=== PATIENT | female | born 1945 | race Caucasian/White ===

== ENCOUNTER 2023-12-10 09:45 | Inpatient (IN) | payer MEDICARE, BC, SELFPAY ==
--- NOTE | 2023-11-11 10:15 | CM ---
Patient is scheduled for lumbar spine surgery on 12/10/23. Spoke with patient prior to surgery via telephone. Introduced role of the Orthopedic Navigator. Patient reports that she lives with her in a two story home. There are two steps to
enter and a flight of steps to the second floor. She currently functions independently and uses a cane. She has no other DME. She has never had VN services.
Discussed orthopedic program, post surgical plans and tentative plan for patient to return home when directed by surgeon. Patient is in agreement with tentative plan and will have support from her when she goes home.
Plan: Orthopedic Navigator will remain available to assist with the care of patient and will reassess discharge needs after surgery.
[2023-11-19 12:57] VITALS: BMI 29.1
[2023-11-19 14:48] LABS: Hematocrit 38.9 % (37.0-47.0); Mean Corp Hgb Conc. 33.4 g/dL (33.0-37.0); Mean Corpuscular Hgb 30.8 pg (27.0-31.0); Mean Corpuscular Volume 92.2 fL (81.0-99.0); Mean Platelet Volume 9.2 fL (7.4-10.4); Platelet Count 230 10^3/uL (130-400); Red Blood Cell Count 4.22 10^6/uL (4.20-5.40); Red Cell Dist. Width 12.9 % (11.5-14.5)
[2023-11-19 15:51] LABS: ALT (SGPT) 20 U/L (0-35); AST (SGOT) 31 U/L (14-36); Alkaline Phosphatase 75 U/L (38-126); Blood Urea Nitrogen 18 mg/dl (7-17); Calcium 10.1 mg/dl (8.4-10.2); Carbon Dioxide 24 mmol/L (22-30); Chloride 102 mmol/L (98-107); Estimated Creatinine Clearance 47 ml/min; Glucose 87 mg/dl (70-99); Potassium 4.7 mmol/L (3.5-5.1); Sodium 135 mmol/L (135-145); Total Bilirubin 0.9 mg/dl (0.2-1.3); Total Protein 6.1 g/dl (6.3-8.2); eGFR > 60.00
[2023-11-19 15:59] VITALS: BMI 29.1
[2023-12-10] VITALS (15 sets, daily range): BP systolic 129–157; BP diastolic 48–120; BMI 29.1
[2023-12-10] MEDS: SKELAXIN 800 MG PO (12:21)
[2023-12-10] MEDS: CELEBREX 200 MG PO (12:21)
[2023-12-10] MEDS: TYLENOL 1000 MG PO ×2 (12:21→20:42)
[2023-12-10] MEDS: LYRICA 150 MG PO (12:22)
[2023-12-10] MEDS: NORMOSOL-R 1000 IV (12:24)
--- NOTE | 2023-12-10 15:23 | W.PN.UPDATE ---
Update Note
Progress Note Update
Lumbar spondylolisthesis and stenosis with neurogenic claudication s/p right L5-S1 hemilaminectomy and L4-S1 posterior spinal fusion w/ Dr Yin 12/10/23
DVT prophylaxis - b/l SCDs/TEDs
Elevated blood pressure without diagnosis of hypertension - monitor BP
- Ensure adequate pain control
Bronchial asthma - monitor O2
- IS
- Resume inhaler
GERD - continue PPI therapy
Cervical degenerative disc disease
Sinus bradycardia, asymptomatic
Diverticulosis
Osteoarthritis
Scoliosis
Glaucoma
Remote history of tobacco abuse
[2023-12-10] MEDS: DILAUDID 0.25 MG IV ×3 (15:26→16:29)
[2023-12-10] MEDS: MORPHINE SULFATE 1 MG IV ×2 (15:43→15:52)
[2023-12-10] MEDS: ATIVAN 0.5 MG IV (16:08)
[2023-12-10] MEDS: NORMOSOL-R IV (20:28)
[2023-12-10] MEDS: COLACE 100 MG PO (20:41)
[2023-12-10] MEDS: SENOKOT 17.1999999999999993 MG PO (20:41)
[2023-12-10] MEDS: ULTRAM 50 MG PO (20:41)
[2023-12-10] MEDS: XALATAN OPHTHALMIC SOLUTION 1 DROP BOTH EYES (20:42)
[2023-12-10] MEDS: ANCEF 5 IV (20:42)
[2023-12-10] MEDS: PROTONIX PO (21:26)
[2023-12-11] MEDS: LYRICA 75 MG PO (00:22)
[2023-12-11] MEDS: TYLENOL 1000 MG PO ×2 (00:23→05:35)
[2023-12-11] MEDS: ULTRAM PO ×3 (00:42→13:06)
--- NOTE | 2023-12-11 02:30 | PTCARENOTE ---
02:30 pt is arousable to verbal however is to sedated to taker lisa Ultram, vs WNL, 2am Ultram held
[2023-12-11] MEDS: ANCEF 5 IV (03:49)
[2023-12-11 04:32] VITALS: BP 147/60
[2023-12-11] MEDS: NORMOSOL-R 1000 IV (05:13)
[2023-12-11 05:40] LABS: Hematocrit 37.1 % (37.0-47.0); Hemoglobin 12.6 g/dL (12.0-16.0)
[2023-12-11 06:05] LABS: Blood Urea Nitrogen 16 mg/dl (7-17); Carbon Dioxide 24 mmol/L (22-30); Chloride 104 mmol/L (98-107); Estimated Creatinine Clearance 61 ml/min; Glucose 173 mg/dl (70-99); Potassium 4.3 mmol/L (3.5-5.1); Sodium 134 mmol/L (135-145); eGFR > 60.00
--- NOTE | 2023-12-11 06:38 | PTCARENOTE ---
19:39 pt admitted to unit, [address], pt aaox3, IVF infusing, pt c/o pain, lisa Tylenol administered. Pt oriented to unit and quickly fell asleep shortly after her son ad left.
[2023-12-11 07:51] VITALS: BP 146/55
--- NOTE | 2023-12-11 07:59 | W.DS.TRANS ---
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
-
Discharge Instructions:
Sleep Apnea Risk Low
Discharge Diagnosis/Procedures Lumbar spondylolisthesis and stenosis with
neurogenic claudication s/p right L5-S1
hemilaminectomy and L4-S1 posterior spinal
fusion w/ Dr Yin 12/10/23
Diet Regular
Activity As tolerated
Additional Activity No heavy lifting >10 lbs
Driving Restrictions Not until seen by your Dr
Bathing Restrictions OK to shower in 4 days
Instructions:
Stand-Alone Forms: Yin Lumbar D/C Inst.
Changes to Home Medications: No
Discharge Medications:
DC Medications w/original date entered in [employer]
Beet Root 2,400 mg PO DAILY Supplement 11/18/23
Bifidobacterium infantis 4 mg capsule (Align) 4 mg PO DAILY Supplement 11/18/23
L-Arginine(alpha-ketoglutarat) 500 mg PO DAILY Supplement 11/18/23
Nutrafol 4 cap PO DAILY Supplement 11/18/23
Rock DHA 1,120 mg PO DAILY Supplement 11/18/23
Vitamin D3 62.5 mcg PO DAILY Supplement 11/18/23
albuterol sulfate 90 mcg/actuation aerosol inhaler 2 puff inhalation Q6H PRN asthma 11/18/23
bimatoprost 0.01 % eye drops (Lumigan) 1 drp ophthalmic (eye) QPM Eye Condition 11/18/23
calcium citrate 1,000 mg tablet 2,000 mg PO DAILY Supplement 11/18/23
coenzyme [id number] E 100 mg-5 unit capsule (Co Q-10 (with Vit E)) 1 cap PO DAILY Supplement 11/18/23
naproxen sodium 220 mg tablet (Aleve) 440 mg PO BID PRN pain 11/18/23
psyllium 1 packet PO DAILY Constipation 11/18/23
pyridoxine (vitamin B6) 50 mg tablet 50 mg PO DAILY Supplement 11/18/23
simethicone 125 mg capsule (Gas-X Extra Strength) 125 mg PO DAILYPRN PRN GI 11/18/23
tramadol 50 mg tablet 50 mg PO Q6HPRN PRN pain 11/18/23
turmeric root extract 500 mg capsule 2,000 mg PO DAILY Supplement 11/18/23
vitamin B complex 1 tab PO DAILY Supplement 11/18/23
omeprazole 20 mg tablet,delayed release 20 mg PO DAILYPRN PRN GERD/upset stomach 11/19/23
Home Medication Changes
Pending Results: No
--- NOTE | 2023-12-11 08:00 | W.PN.SP ---
Today's Communication / Plan
-
Overall doing well
Told her inportance of being compliant
PT
D/c
Subjective / Objective
Subjective Data
Pt sleeping comfortably
Apparebtly not compliant with OOb and brace
Legs better
Objective Data
Vital Signs
Temp Pulse Resp BP Pulse Ox
97.1 F 62 16 146/55 96
12/11/23 07:51 12/11/23 07:51 12/11/23 07:51 12/11/23 07:51 12/11/23 07:51
Intake and Output
12/10/23 12/11/23 12/12/23
06:59 06:59 06:59
Intake Total 2180 / 2180
Output Total 800 / 800
Balance 1380 / 1380
Intake:
Oral fluids 480 / 480
IV fluids (Total) 1700 / 1700
normosol 500 / 500
Output:
Urine, Voided 800 / 800
Other:
Number of unmeasured voidings 1
Lab Data
12/11/23 05:12
12/11/23 05:12
Physical Exam
-
No focal defictis
--- NOTE | 2023-12-11 08:03 | W.DS.TRANS ---
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
-
Discharge Instructions:
Sleep Apnea Risk Low
Discharge Diagnosis/Procedures Lumbar spondylolisthesis and stenosis with
neurogenic claudication s/p right L5-S1
hemilaminectomy and L4-S1 posterior spinal
fusion w/ Dr Yin 12/10/23
Diet Regular
Activity As tolerated
Additional Activity No heavy lifting >10 lbs
Driving Restrictions Not until seen by your Dr
Bathing Restrictions OK to shower in 4 days
Instructions:
Stand-Alone Forms: Yin Lumbar D/C Inst.
Changes to Home Medications: No
Discharge Medications:
DC Medications w/original date entered in [employer]
Beet Root 2,400 mg PO DAILY Supplement 11/18/23
Bifidobacterium infantis 4 mg capsule (Align) 4 mg PO DAILY Supplement 11/18/23
L-Arginine(alpha-ketoglutarat) 500 mg PO DAILY Supplement 11/18/23
Nutrafol 4 cap PO DAILY Supplement 11/18/23
[place] DHA 1,120 mg PO DAILY Supplement 11/18/23
Vitamin D3 62.5 mcg PO DAILY Supplement 11/18/23
albuterol sulfate 90 mcg/actuation aerosol inhaler 2 puff inhalation Q6H PRN asthma 11/18/23
bimatoprost 0.01 % eye drops (Lumigan) 1 drp ophthalmic (eye) QPM Eye Condition 11/18/23
calcium citrate 1,000 mg tablet 2,000 mg PO DAILY Supplement 11/18/23
coenzyme [id number] E 100 mg-5 unit capsule (Co Q-10 (with Vit E)) 1 cap PO DAILY Supplement 11/18/23
naproxen sodium 220 mg tablet (Aleve) 440 mg PO BID PRN pain 11/18/23
psyllium 1 packet PO DAILY Constipation 11/18/23
pyridoxine (vitamin B6) 50 mg tablet 50 mg PO DAILY Supplement 11/18/23
simethicone 125 mg capsule (Gas-X Extra Strength) 125 mg PO DAILYPRN PRN GI 11/18/23
tramadol 50 mg tablet 50 mg PO Q6HPRN PRN pain 11/18/23
turmeric root extract 500 mg capsule 2,000 mg PO DAILY Supplement 11/18/23
vitamin B complex 1 tab PO DAILY Supplement 11/18/23
omeprazole 20 mg tablet,delayed release 20 mg PO DAILYPRN PRN GERD/upset stomach 11/19/23
Home Medication Changes
Pending Results: No
[2023-12-11] MEDS: VISBIOME 1 CAP PO (08:21)
[2023-12-11] MEDS: SENOKOT 17.1999999999999993 MG PO (08:21)
[2023-12-11] MEDS: ULTRAM 50 MG PO ×2 (08:24→13:13)
[2023-12-11] MEDS: PROTONIX 40 MG PO (08:24)
[2023-12-11] MEDS: COLACE 100 MG PO (08:24)
--- NOTE | 2023-12-11 08:44 | CM ---
Reviewed chart and held rounds with PT, OT and RN. Patient had planned lumbar spine surgery with Dr. Yin on 12/09. Met with patient at bedside. Confirmed information previously obtained for assessment and discussed discharge plans. Patient continues
to plan to return home at discharge. She will have support from her when she goes home. Reviewed that she will work with PT/OT this morning and that discharge needs will depend on her functional status. However, no needs currently
identified.
Patient has a cane.
Patient will use [facility] pharmacy for discharge prescriptions.
[2023-12-11 10:47] VITALS: BP 138/85; BP 148/57; BP 155/57; PULSE 65; PULSE 68; O2SAT 98
[2023-12-11] MEDS: NORMOSOL-R 500 IV (11:17)
[2023-12-11 11:52] VITALS: BP 138/85
--- NOTE | 2023-12-11 11:58 | PTCARENOTE ---
RN called into room by PT after pt c/o dizziness and becoming unsteady falling backwards while ambulating. VSS. Pt assisted back to bed and Veronica Sharp PA-c made aware. Pt educated on remaining in bed until being evaluated and IV bolus completed, pt
questioned why, purpose reinforced.
RN called into room by PCT stating ' the patient walked herself to the bathroom and is refusing to let me stay with her'. PT found sitting forward on the toilet with no back brace and rolling walker in the main room. Pt became argumentative stating
' what about my privacy' RN reinforced safety measures, fall prevention, and pts need to ring for assistance. Pt refused teaching and said ' im fine, im not gonna fall'. Pt assisted back to bed, sitting at the side, refusing to fully get into bed. Veronica
Aron made aware and to bedside to see pt. Pt again assisted to the bathroom by Veronica Sharp and this RN. Pt again argumentative that she needs to be alone in the bathroom, not willing to sit until staff leaves, pt several times leaning forward and
the side into the walker while standing in front of the toilet. Pt continued to be educated on safety measures and the importance of not falling. Pt continuing to refuse teaching but agreeable to sit with PA-c and RN present. Pt had a BM and was
assisted to the sink by RN. Pt several times leaning forward, twisting and letting go/ not taking the walker with her while ambulating. Back precautions and activity restrictions repeatedly reinforced during session. Pt repeatedly denying level of
dizziness while working with PT, stated 'it was minor', pt refusing to get back into bed stated ' i am dizzy laying in the bed, i am not dizzy sitting up in the chair'. Pt assisted back to the chair, per PATeresec pt ok to sit up in the chair only if
family is present the entire time. Bed alarm and Chair alarm applied and in use. Care remains ongoing.
[2023-12-11] MEDS: NORMOSOL-R IV (12:50)
[2023-12-11] MEDS: TYLENOL PO (13:10)
[2023-12-11 13:26] VITALS: BP 147/44; BP 149/43; PULSE 68; O2SAT 99
[2023-12-11 13:43] VITALS: BP 147/44; PULSE 68
--- NOTE | 2023-12-11 14:11 | W.PN.ORTHO ---
Today's Communication / Plan
-
D/c today since now clinically stable, did well w/ PT and OT.
Assessment
.
Distal Motor Intact: Yes
Dressing:
Clean, dry and intact.
Assessment:
Lumbar spondylolisthesis and stenosis with neurogenic claudication s/p right L5-S1 hemilaminectomy and L4-S1 posterior spinal fusion w/ Dr Yin 12/10/23
DVT prophylaxis - b/l SCDs/TEDs
Dizziness earlier w/ PT - improved w/ positional changes and an IVF bolus
- Was able to work w/ PT and OT efficiently afterwards. No further dizziness. BPs stable.
- Continue to minimize opioids as able
Elevated blood pressure without diagnosis of hypertension - BPs stable
- Ensured adequate pain control
Bronchial asthma - O2 stable on RA
- IS
- Resumed inhaler
GERD - continue PPI therapy
Cervical degenerative disc disease
Sinus bradycardia, asymptomatic
Diverticulosis
Osteoarthritis
Scoliosis
Glaucoma
Remote history of tobacco abuse
Pt reportedly non-compliant overnight w/ back brace and ringing her call moser to ambulate OOB. Re-enforcement of back brace and using rolling walker upon d/c were provided prior to d/c. present during conversation.
Plan
.
Surgery / Date: R L5-S1 hemilami/L4-L5 PSF w/ Yin 12/09
DVT Prophylaxis: Other (b/l SCDs/TEDs)
Activity:
Out of bed.
PT/OT
Discharge Plan: Home
Subjective
.
.:
Patient resting comfortably in her chair this afternoon.
Appears comfortable w/ Tylenol and Tramadol prn. Would prefer to stay on this regimen upon d/c.
Dizziness w/ therapy earlier, improving w/ IVF bolus.
AM labs stable. Eager for d/c today.
Vital Signs and Labs
.
Vital Signs and Labs:
Lab Results
12/11/23 05:12
12/11/23 05:12
Temp Pulse Resp BP Pulse Ox
97.6 F 65 16 138/85 95
12/11/23 11:52 12/11/23 11:52 12/11/23 11:52 12/11/23 11:52 12/11/23 11:52
Physical Exam
-
HEENT: No pallor, cyanosis, or jaundice. Throat clear.
NECK: Supple. No JVD.
RESPIRATORY: Lungs clear to auscultation.
CVS: S1, S2 normal. RRR.�
ABDOMEN: Soft, non-tender. No distension.
EXTREMITIES: Strength equal, no calf pain with palpation/dorsiflexion. Calves soft.
CFO CONTROLLER: AOx3. No focal deficits. fiberline supervisor grossly intact
--- NOTE | 2023-12-11 14:27 | W.DS.TRANS ---
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
-
Discharge Instructions:
Sleep Apnea Risk Low
Discharge Diagnosis/Procedures Lumbar spondylolisthesis and stenosis with
neurogenic claudication s/p right L5-S1
hemilaminectomy and L4-S1 posterior spinal
fusion w/ Dr Yin 12/10/23
Diet Regular
Activity As tolerated,With Walker
Additional Activity No heavy lifting >10 lbs
Driving Restrictions Not until seen by your Dr
Bathing Restrictions OK to shower in 4 days
Instructions:
Stand-Alone Forms: Yin Lumbar D/C Inst.
Changes to Home Medications: Yes
Discharge Medications:
DC Medications w/original date entered in [employer]
Beet Root 2,400 mg PO DAILY Supplement 11/18/23
Bifidobacterium infantis 4 mg capsule (Align) 4 mg PO DAILY Supplement 11/18/23
L-Arginine(alpha-ketoglutarat) 500 mg PO DAILY Supplement 11/18/23
Nutrafol 4 cap PO DAILY Supplement 11/18/23
Badin DHA 1,120 mg PO DAILY Supplement 11/18/23
Vitamin D3 62.5 mcg PO DAILY Supplement 11/18/23
albuterol sulfate 90 mcg/actuation aerosol inhaler 2 puff inhalation Q6H PRN asthma 11/18/23
bimatoprost 0.01 % eye drops (Lumigan) 1 drp ophthalmic (eye) QPM Eye Condition 11/18/23
calcium citrate 1,000 mg tablet 2,000 mg PO DAILY Supplement 11/18/23
coenzyme [id number] E 100 mg-5 unit capsule (Co Q-10 (with Vit E)) 1 cap PO DAILY Supplement 11/18/23
pyridoxine (vitamin B6) 50 mg tablet 50 mg PO DAILY Supplement 11/18/23
simethicone 125 mg capsule (Gas-X Extra Strength) 125 mg PO DAILYPRN PRN GI 11/18/23
vitamin B complex 1 tab PO DAILY Supplement 11/18/23
omeprazole 20 mg tablet,delayed release 20 mg PO DAILYPRN PRN GERD/upset stomach 11/19/23
acetaminophen 500 mg tablet (Tylenol Extra Strength) 1,000 mg (2 x 500 mg) PO Q6H #30 tabs 12/11/23
cephalexin 500 mg capsule 500 mg PO QID #20 caps 12/11/23
docusate sodium 100 mg capsule 100 mg PO BID #30 caps 12/11/23
ondansetron HCl 4 mg tablet 4 mg PO Q6H PRN nausea and vomiting #30 tabs 12/11/23
sennosides 8.6 mg tablet (Senna Laxative) 17.2 mg (2 x 8.6 mg) PO BID #30 tabs 12/11/23
tramadol 50 mg tablet 50 mg PO Q6H PRN moderate-severe pain #30 tabs 12/11/23
Home Medication Changes
acetaminophen 500 mg tablet (Tylenol Extra Strength) 1,000 mg (2 x 500 mg) PO Q6H #30 tabs 12/11/23
cephalexin 500 mg capsule 500 mg PO QID #20 caps 12/11/23
docusate sodium 100 mg capsule 100 mg PO BID #30 caps 12/11/23
ondansetron HCl 4 mg tablet 4 mg PO Q6H PRN nausea and vomiting #30 tabs 12/11/23
sennosides 8.6 mg tablet (Senna Laxative) 17.2 mg (2 x 8.6 mg) PO BID #30 tabs 12/11/23
tramadol 50 mg tablet 50 mg PO Q6H PRN moderate-severe pain #30 tabs 12/11/23
Pending Results: No
== END 2023-12-11 15:05 | disposition home or self-care (01) | DRG 460 ==
LOC: 2 SOUTH 09:45
PROVIDERS: Physician Assistant; ADMITTING PHYSICIAN Orthopaedic Surgery Orthopaedic Surgery of the Spine; FAMILY PHYSICIAN Internal Medicine
PROC: 0SG30K1 Fusion of Lumbosacral Joint with Nonautologous Tissue Substitute, Posterior Approach, Posterior Column, Open Approach (ICD-10-PCS; 2023-12-10)
PROC: 0SG00K1 Fusion of Lumbar Vertebral Joint with Nonautologous Tissue Substitute, Posterior Approach, Posterior Column, Open Approach (ICD-10-PCS; 2023-12-10)
PROC: 01NB0ZZ Release Lumbar Nerve, Open Approach (ICD-10-PCS; 2023-12-10)
DX: M48.07 Spinal stenosis, lumbosacral region (principal); J45.909 Unspecified asthma, uncomplicated; K21.9 Gastro-esophageal reflux disease without esophagitis; M43.16 Spondylolisthesis, lumbar region
CPT/HCPCS: 36415; 72100; 76000; 80048; 80053; 85014; 85018; 85027; 87070; 93005; 97116; 97166; 97530; C1713; C1776